=== PATIENT | male | born 1950 | race Caucasian/White ===

== ENCOUNTER → 2016-11-30 | Outpatient (CLI) | payer MEDICARE ==
[~2016-11-30] MED LIST: AMLODIPINE10 MG PO; ASPIR-LOW81 MG PO; CLONIDINE0.2 MG PO; FLEXERIL10 MG PO; LABETALOL HCL100 MG PO; LABETALOL200 MG PO; LISINOPRIL/HCTZ1 TA1 PO; NORCO 325 MG-51 TAB PO; PANTOPRAZOLE40 M1 PO; PRINIVIL5 MG PO; PROTONIX40 MG PO
== END | disposition home or self-care (01) ==
LOC: LAB 12:45
PROVIDERS: Internal Medicine Cardiovascular Disease
DX: R74.8 Abnormal levels of other serum enzymes (principal); R79.9 Abnormal finding of blood chemistry, unspecified

== ENCOUNTER → 2016-12-07 | Outpatient (CLI) | payer MEDICARE | END | disposition home or self-care (01) | LOC: CT 12-02 15:00 → LAB 12-02 15:03 | PROVIDERS: Internal Medicine Cardiovascular Disease | DX: I71.2 Thoracic aortic aneurysm, without rupture (principal); R79.9 Abnormal finding of blood chemistry, unspecified; R74.8 Abnormal levels of other serum enzymes; Z95.828 Presence of other vascular implants and grafts ==

== ENCOUNTER → 2017-03-01 | Outpatient (CLI) | payer MEDICARE ==
[2017-03-01 10:44] LABS: BASO % 0.4 % (0.0-1.0); EOS # 0.1 10*3/uL (0.0-0.4); EOS % 1.5 % (1.0-4.0); HEMATOCRIT 42.9 % (42.0-52.0); HEMOGLOBIN 13.3 g/dl (14.0-18.0); LYMPH # 1.6 10*3/uL (1.3-4.4); LYMPH % 22.7 % (27.0-41.0); MEAN CELL VOLUME 70.3 fl (80.0-94.0); MEAN CORPUSCULAR HGB 21.8 pg (27.0-31.0); MEAN PLATELET VOLUME 10.9 fl (9.6-12.3); MONO # 0.7 10*3/uL (0.1-1.0); MONO % 10.2 % (3.0-9.0); NEUT # 4.7 10*3/uL (2.3-7.9); NEUT % 64.8 % (47.0-73.0); PLATELET COUNT AUTOMATED 180 10*3/uL (130-400); RED CELL DISTRI WIDTH 17.2 % (0-14.5); WHITE BLOOD COUNT 7.2 10*3/uL (4.8-10.8)
[2017-03-01 11:08] LABS: BUN 22 mg/dl (7-24); CARBON DIOXIDE 28 mmol/L (21-32); CHLORIDE 108 mmol/L (98-107); EST GLOM FILT AFRICAN AMERICAN > 60 ml/min; GLUCOSE 115 mg/dL (65-99); POTASSIUM 4.3 mmol/L (3.5-5.1); SODIUM 143 mmol/L (136-145)
[2017-03-01 11:41] LABS: INTERNATIONAL NORM RATIO 1.1 (2.0-3.5); PROTHROMBIN TIME 12.1 SECONDS (9.0-12.4)
[2017-03-01 12:37] LABS: BILIRUBIN NEGATIVE (NEGATIVE); BLOOD NEGATIVE (NEGATIVE); CLARITY SL CLOUDY (CLEAR); COLOR YELLOW (YELLOW); GLUCOSE NEGATIVE (NEGATIVE); KETONE NEGATIVE (NEGATIVE); LEUKO ESTERASE NEGATIVE (NEGATIVE); NITRITE NEGATIVE (NEGATIVE); PH 6.5 (5.0-9.0); PROTEIN 1+ (NEGATIVE); UROBILINOGEN 0.2 E.U./dl (0.2-1.0)
[2017-03-01 12:46] LABS: BACTERIA TRACE; WBC 0-2 wbc/hpf (0-5)
[2017-03-01 12:47] LABS: URINE REFLEX COMMENT NO (NO)
== END | disposition home or self-care (01) ==
LOC: LAB 10:18
PROVIDERS: Surgery
DX: I71.2 Thoracic aortic aneurysm, without rupture (principal); I48.0 Paroxysmal atrial fibrillation; Z79.899 Other long term (current) drug therapy

== ENCOUNTER → 2017-03-24 | Outpatient (CLI) | payer MEDICARE | END | disposition home or self-care (01) | LOC: CT 10:50 | DX: I71.4 Abdominal aortic aneurysm, without rupture (principal); M54.5 Low back pain; J90 Pleural effusion, not elsewhere classified ==

== ENCOUNTER 2017-04-17 11:04 | Emergency (ER) | payer MEDICARE ==
[~2017-04-17] VITALS: Ht 167.6 cm; Wt 81.6 kg
[2017-04-17 13:04] LABS: ALBUMIN 3.3 gm/dl (3.1-4.5); ALKALINE PHOSPHATASE 103 U/L (45-117); BILIRUBIN, TOTAL 0.8 mg/dl (0.2-1.0); BUN 22 mg/dl (7-24); CARBON DIOXIDE 28 mmol/L (21-32); CHLORIDE 107 mmol/L (98-107); EST GLOM FILT AFRICAN AMERICAN > 60 ml/min; GLUCOSE 119 mg/dL (65-99); POTASSIUM 4.3 mmol/L (3.5-5.1); SGOT/AST 12 IU/L (3-35); SGPT/ALT 20 U/L (12-78); SODIUM 141 mmol/L (136-145); TOTAL PROTEIN 7.5 gm/dL (6.4-8.2)
[2017-04-17 13:12] LABS: TROPONIN I < 0.015 ng/ml (<0.045)
[2017-04-17 13:25] LABS: BASO % 0.3 % (0.0-1.0); EOS # 0.1 10*3/uL (0.0-0.4); HEMATOCRIT 35.4 % (42.0-52.0); HEMOGLOBIN 10.5 g/dl (14.0-18.0); IG # 0.1 10*3/uL (0.0-0.1); LYMPH # 1.3 10*3/uL (1.3-4.4); LYMPH % 13.1 % (27.0-41.0); MEAN CELL VOLUME 68.1 fl (80.0-94.0); MEAN CORPUSCULAR HGB 20.2 pg (27.0-31.0); MEAN CORPUSCULAR HGB CONC 29.7 g/dl (33.0-37.0); MEAN PLATELET VOLUME 10.2 fl (9.6-12.3); MONO % 10.2 % (3.0-9.0); NEUT # 7.5 10*3/uL (2.3-7.9); NEUT % 74.7 % (47.0-73.0); NUCLEATED RED BLOOD CELL 0.3 % (0.0-0.0); PLATELET COUNT AUTOMATED 315 10*3/uL (130-400); RED CELL DISTRI WIDTH 17.4 % (0-14.5)
== END 2017-04-17 17:46 | disposition home or self-care (01) ==
LOC: ED 11:04
PROVIDERS: Emergency Medicine
DX: R06.00 Dyspnea, unspecified (principal); I71.4 Abdominal aortic aneurysm, without rupture; Z88.0 Allergy status to penicillin; Z79.82 Long term (current) use of aspirin; Z79.899 Other long term (current) drug therapy; Z98.42 Cataract extraction status, left eye; Z98.41 Cataract extraction status, right eye; Z98.890 Other specified postprocedural states

== ENCOUNTER 2017-08-16 22:58 | Inpatient (IN) | payer MEDICARE ==
[~2017-08-16] VITALS: Ht 167.6 cm; Wt 94.9 kg
[2017-08-16 23:10] VITALS: BP 140/90
[2017-08-16] MEDS ORDERED: ELIQUIS5 M1 PO (23:10)
[2017-08-16 23:48] LABS: BASO % 0.3 % (0.0-1.0); EOS # 0.2 10*3/uL (0.0-0.4); HEMOGLOBIN 12.2 g/dl (14.0-18.0); LYMPH # 1.4 10*3/uL (1.3-4.4); LYMPH % 13.8 % (27.0-41.0); MEAN CELL VOLUME 67.3 fl (80.0-94.0); MEAN CORPUSCULAR HGB CONC 29.8 g/dl (33.0-37.0); MEAN PLATELET VOLUME 9.7 fl (9.6-12.3); MONO # 0.9 10*3/uL (0.1-1.0); MONO % 9.5 % (3.0-9.0); NEUT # 7.3 10*3/uL (2.3-7.9); NEUT % 73.9 % (47.0-73.0); PLATELET COUNT AUTOMATED 186 10*3/uL (130-400); RED BLOOD COUNT 6.09 10*6/uL (4.50-5.90); RED CELL DISTRI WIDTH 20.5 % (0-14.5); WHITE BLOOD COUNT 9.8 10*3/uL (4.8-10.8)
[2017-08-16 23:59] LABS: ACT PARTIAL THROMBO TIME 26.3 SECONDS (20.8-31.5); INTERNATIONAL NORM RATIO 1.1 (2.0-3.5)
[2017-08-17 00:04] LABS: ALBUMIN 3.7 gm/dl (3.1-4.5); ALKALINE PHOSPHATASE 72 U/L (45-117); BUN 26 mg/dl (7-24); CHLORIDE 104 mmol/L (98-107); CREATININE 1.47 mg/dL (0.70-1.30); MAGNESIUM 2.4 mg/dL (1.5-2.1); POTASSIUM 3.9 mmol/L (3.5-5.1); SGOT/AST 14 IU/L (3-35); SGPT/ALT 21 U/L (12-78); SODIUM 140 mmol/L (136-145); TOTAL PROTEIN 7.1 gm/dL (6.4-8.2)
[2017-08-17 00:08] LABS: TROPONIN I < 0.015 ng/ml (<0.045)
[2017-08-17 00:24] VITALS: BP 156/83
[2017-08-17 00:46] VITALS: BP 128/75
[2017-08-17 01:07] VITALS: BP 122/65
[2017-08-17 01:30] VITALS: BP 136/84
--- NOTE | 2017-08-17 01:30 | NUR ---
A 66, admitted to , under the services of ANALIA Palma DO with a diagnosis of CHEST PAIN. Chief complaint is CHEST PAIN. Patient arrived via bed from ER. Monitor applied. Initial assessment completed. Vital signs taken and recorded. ANALIA PALMA DO notified of admission to the unit. Orders received. See assessment for past medical history, medications and allergies. Patient and/or family oriented to unit. visitation policy reviewed. Clothing/patient valuable form completed. JAYLA BRAGG
[2017-08-17] MEDS ORDERED: TOPROL XL25 MG PO (02:25)
[2017-08-17] MEDS ORDERED: APRESOLINE25 MG PO (02:25)
[2017-08-17] MEDS ORDERED: PLAVIX75 M1 PO (02:26)
[2017-08-17] MEDS ORDERED: ZOCOR40 MG PO (02:26)
[2017-08-17] MEDS ORDERED: LANOXIN0.125 MG PO (02:28)
--- NOTE | 2017-08-17 02:30 | NUR ---
MED REC UP TO DATE PER PT MED LIST FROM HOME
--- NOTE | 2017-08-17 02:40 | NUR ---
PT ADMITTED TO FLOOR. PT PLEASENT AND COOPROTIVE. CALL LIGHT IN REACH, NO DISTRESS NOTED. WILL CONTINUE TO MONITOR.
--- NOTE | 2017-08-17 03:28 | NUR ---
IV started right antecubital with #22 protective cath after 1 attempts. Site prepped with Chloroprep. Sterile dressing applied. Patient tolerated procedure well. JAYLA BRAGG
--- NOTE | 2017-08-17 03:45 | NUR ---
PT OFF FLOOR VIA WHEELCHAIR FOR CTA
[2017-08-17 06:04] LABS: BASO % 0.4 % (0.0-1.0); EOS # 0.2 10*3/uL (0.0-0.4); EOS % 2.3 % (1.0-4.0); HEMOGLOBIN 12.4 g/dl (14.0-18.0); LYMPH # 1.5 10*3/uL (1.3-4.4); LYMPH % 17.8 % (27.0-41.0); MEAN CELL VOLUME 67.5 fl (80.0-94.0); MEAN CORPUSCULAR HGB 19.9 pg (27.0-31.0); MEAN CORPUSCULAR HGB CONC 29.5 g/dl (33.0-37.0); MEAN PLATELET VOLUME 10.1 fl (9.6-12.3); MONO # 0.9 10*3/uL (0.1-1.0); MONO % 10.2 % (3.0-9.0); NEUT # 5.8 10*3/uL (2.3-7.9); NEUT % 68.7 % (47.0-73.0); PLATELET COUNT AUTOMATED 184 10*3/uL (130-400); RED BLOOD COUNT 6.22 10*6/uL (4.50-5.90); RED CELL DISTRI WIDTH 20.2 % (0-14.5); WHITE BLOOD COUNT 8.4 10*3/uL (4.8-10.8)
[2017-08-17 06:11] LABS: ACT PARTIAL THROMBO TIME 26.6 SECONDS (20.8-31.5); INTERNATIONAL NORM RATIO 1.1 (2.0-3.5)
[2017-08-17 06:12] LABS: ALBUMIN 3.6 gm/dl (3.1-4.5); ALKALINE PHOSPHATASE 69 U/L (45-117); BUN 23 mg/dl (7-24); CHLORIDE 105 mmol/L (98-107); CHOLESTEROL 114 mg/dL (<200); CREATININE 1.33 mg/dL (0.70-1.30); FREE T4 1.11 ng/dl (0.76-1.46); HDL CHOLESTEROL 43 mg/dl (40-60); LDL CHOLESTEROL 46 mg/dL (9-159); MAGNESIUM 2.1 mg/dL (1.5-2.1); PHOSPHOROUS 3.1 mg/dL (2.5-4.9); SGOT/AST 11 IU/L (3-35); SGPT/ALT 20 U/L (12-78); SODIUM 139 mmol/L (136-145); TRIGLYCERIDES 127 mg/dl (<150); VLDL CHOLESTEROL 25 mg/dL (6-40)
[2017-08-17 06:16] LABS: THYROID STIM HORMONE (HS) 0.849 uIU/ml (0.358-4.75)
[2017-08-17 07:08] LABS: IRON 63 ug/dL (65-175); TOTAL IRON BINDING CAPACITY 283 ug/dl (250-450)
[2017-08-17 07:32] LABS: VITAMIN D, 25-HYDROXY 14.4 ng/mL (30-100)
[2017-08-17 08:00] VITALS: BP 152/94
--- NOTE | 2017-08-17 08:00 | NUR ---
PT SITTING UP IN BEDSIDE CHAIR. NO DISTRESS NOTED. RESPIRATIONS EASY, REGULAR ON RA. DENIES ANY SOB. PT DENIES ANY EPIGASTRIC PAIN AT THIS TIME. WILL CONTINUE TO MONITOR. VSS. CALL LIGHT WITHIN REACH.
--- NOTE | 2017-08-17 08:30 | NUR ---
[employer] Control Coordinator in to talk to patient. Patient states lives at [address] with HIS . There are 13 steps in the home. Physician: DR ADAMS Pharmacy: [facility] health services: NONE Patient's level of ADLs: INDEPENDENT Patient has working utilities: YES DME: NONE Follow-up physician's appointment after d/c: WILL BE MADE PRIOR TO DC Does patient want to access PORTAL?: Discharge plan HOME. AICHA FERNANDEZ
--- NOTE | 2017-08-17 10:00 | NUR ---
FLU VACCINE OFFERED PER POLICY AND PATIENT REFUSED.
[2017-08-17 12:00] VITALS: BP 155/89
[2017-08-17] MEDS ORDERED: B12,B-12,B 12500 MC1 PO (13:05)
[2017-08-17] MEDS ORDERED: PANTOPRAZOLE SO20 MG PO (13:05)
[2017-08-17] MEDS ORDERED: VITAMIN D31000 UNI1 PO (13:05)
--- NOTE | 2017-08-17 14:38 | NUR ---
Discharge instructions reviewed with patient/family. Patient receptive and verbalizes understanding. Follow-up care arranged. Written instructions given to patient/family. YESENIA HASSAN.
== END 2017-08-17 14:38 | disposition home or self-care (01) | DRG 313 ==
LOC: ED 22:58 → 4E 08-17 00:42 → EDHOLD 08-17 00:42 → 4E 08-17 00:55
PROVIDERS: Emergency Medicine Emergency Medical Services; Hospitalist; Student in an Organized Health Care Education/Training Program; ADMIT Internal Medicine
DX: R07.89 Other chest pain (principal); I11.9 Hypertensive heart disease without heart failure; I48.0 Paroxysmal atrial fibrillation; K21.9 Gastro-esophageal reflux disease without esophagitis; I71.4 Abdominal aortic aneurysm, without rupture; E55.9 Vitamin D deficiency, unspecified; E53.8 Deficiency of other specified B group vitamins; D50.9 Iron deficiency anemia, unspecified; E78.00 Pure hypercholesterolemia, unspecified; Z98.61 Coronary angioplasty status; Z88.0 Allergy status to penicillin; Z80.9 Family history of malignant neoplasm, unspecified; Z82.3 Family history of stroke; Z79.899 Other long term (current) drug therapy; Z79.01 Long term (current) use of anticoagulants; Z98.49 Cataract extraction status, unspecified eye

== ENCOUNTER → 2017-10-13 | Outpatient (CLI) | payer MEDICARE ==
[~2017-10-13] MED LIST changes: +APRESOLINE25 MG PO; +B12,B-12,B 12500 MC1 PO; +ELIQUIS5 M1 PO; +LANOXIN0.125 MG PO; +PANTOPRAZOLE SO20 MG PO; +PLAVIX75 M1 PO; +TOPROL XL25 MG PO; +VITAMIN D31000 UNI1 PO; +ZOCOR40 MG PO
== END | disposition home or self-care (01) ==
LOC: RAD 10-06 08:00
DX: K21.9 Gastro-esophageal reflux disease without esophagitis (principal); K27.9 Peptic ulcer, site unspecified, unspecified as acute or chronic, without hemorrhage or perforation; B96.81 Helicobacter pylori [H. pylori] as the cause of diseases classified elsewhere; Z95.5 Presence of coronary angioplasty implant and graft